=== PATIENT | male | born 1980 | race African-American/Black ===

== ENCOUNTER 2016-11-20 15:32 | Emergency (ER) | payer OTHER ==
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
--- NOTE | ~2016-11-20 | CR58 ---
[facility] A Service of [facility] & [facility] RADIOLOGY TEXT RESULTS PATIENT: PITER BURDEN LOCATION: CFTX : 82 UNIT #: [id number] AGE: [address]: Fara Gutierrez SEX: M ORDER DR: [id number] [facility] [address] [facility]. [place], [place] [address] [id number] E MR#: [id number] Acc #: [id number] NAME: PITER BURDEN : 1980 SEX: M STUDY DATE/TIME: 11/20/2016 14:52 UNIT: [facility]FT[facility] ROOM: STUDY DESCRIPTION: CR Cervical Spine 2 or 3 Views Attending Physician: Fara Gutierrez Pa-C Ordering Physician: Fara Gutierrez Pa-C Primary Care Physician: No Primary Care Physician MEDICAL IMAGING REPORT This report is preliminary unless electronic signature is present EXAM Cervical spine 3-view series. HISTORY Pain in neck and left knee for 5 days. FINDINGS AP, lateral, and odontoid views of the cervical spine were obtained. There is a prominent anterior osteophyte formation at C6-7. The other vertebral bodies are normal. There is no significant posterior spurring. IMPRESSION Anterior osteophyte formation at C6-7, otherwise normal cervical spine series. Dictated by... Ritesh Haji M.D. THIS IS AN ELECTRONICALLY VERIFIED REPORT Ritesh Haji M.D. at 11/20/2016 4:59 PM LOLLY/hesham TD: 11/20/2016 16:34 JOB #: [id number] MEDICAL IMAGING REPORT Page 1 of 1 COPY
== END 2016-11-20 15:40 | disposition home or self-care (01) ==
LOC: CFTX 15:32
DX: S16.1XXA Strain of muscle, fascia and tendon at neck level, initial encounter (principal); S80.02XA Contusion of left knee, initial encounter; Z88.0 Allergy status to penicillin; Z88.1 Allergy status to other antibiotic agents; F17.210 Nicotine dependence, cigarettes, uncomplicated; V43.62XA Car passenger injured in collision with other type car in traffic accident, initial encounter; Y92.410 Unspecified street and highway as the place of occurrence of the external cause
CPT/HCPCS: 72040; 73560; 99284